=== PATIENT | male | born 1945 | race Caucasian/White ===

== ENCOUNTER 2022-07-26 10:46 | Emergency (ER) | payer OTHER ==
[2022-07-26] MEDS ORDERED: methylPREDNISolone Sodium Succinate 40 MG/1 ML SDV IM STA (11:11)
[2022-07-26] MEDS ORDERED: Ketorolac 60 MG/2 ML SDV IM STA (11:12)
== END 2022-07-26 12:39 | disposition home or self-care (01) ==
LOC: MW.ED 10:46
DX: M50.30 Other cervical disc degeneration, unspecified cervical region (principal); M48.02 Spinal stenosis, cervical region; M43.6 Torticollis; E78.00 Pure hypercholesterolemia, unspecified; Z79.899 Other long term (current) drug therapy
CPT/HCPCS: 72040; 96372; 99283; J1885; J2920